=== PATIENT | male | born 1985 | race Caucasian/White ===

== ENCOUNTER 2017-04-17 09:55 | Inpatient (IN) ==
[2017-04-17 10:28] VITALS: BMI 28.2
--- NOTE | 2017-04-17 11:08 | Anesthesia Preoperative Report ---
Anesthesia Preoperative Record - Date and Time Date: 04/17/17 Preoperative Diagnosis: Robotic Sixto Fundoplicat, K44.9,R11.11,R05,K21.9 uncontrolled gerd Proposed Procedure: robotic assisted laparoscopic sixto fundoplication. NPO Since Date: 04/17/17 NPO Since Time: 00:00 Allergies/Adverse Reactions: Allergies Allergy/AdvReac Type Severity Reaction Status Date / Time No Known Allergies Allergy Unverified 04/17/17 10:43 - Vital Signs Vital Signs: Temperature 99.4 F 04/17/17 10:26 Pulse Rate 106 H 04/17/17 10:39 Respiratory Rate 17 04/17/17 10:26 Blood Pressure 151/78 H 04/17/17 10:26 Pulse Oximetry 96 04/17/17 10:26 Oxygen Delivery Method Room Air Height and Weight: Height 6 ft 1 in Weight 97.1 kg Body Mass Index 28.2 - Medications Inpatient Medications: Current Medications Lactated Ringer's (Lactated Ringers) 1,000 mls @ 30 mls/hr IV .Q24H SINDHU Lidocaine HCl (Xylocaine-Mpf 1% Vial) 1 mg ID O ONE Stop: 04/17/17 15:47 Home Medications: Home Medications Medication Instructions Recorded Confirmed Type Dextroamphetamine/Amphetamine 1 tab PO DAILY #0 tab 12/12/16 04/17/17 History [Adderall 10 mg Tablet] Mirtazapine 0.5 tab PO HS #0 tab 12/12/16 04/17/17 History Atorvastatin [Lipitor] 1 tab PO HS 04/16/17 04/17/17 History - Medical History Respiratory: DENIES: Asthma, Bronchitis, Chronic Obstructive Pulmonary Disease (COPD), Dyspnea, Orthopnea, Pulmonary Embolism, Pneumonia, Upper Respiratory Infection, Pulmonary Edema, Sleep Apnea, Tuberculosis, Other Cardiovascular: DENIES: Abnormal EKG, Angina, Arrhythmia, Congestive Heart Failure, Coronary Artery Disease, Heart Murmur, Hypertension, Hypotension, High Cholesterol, Myocardial Infarction, Rheumatic Fever, Valvular Heart Disease, Other Gastrointestional: Reports: Gastroesophageal Reflux Disease (uncontrolled) Neuro/Musculoskeletal: Denies: HX.MS.OSAR, Back Problems, Cerebrovascular Accident, Depression, Headaches, Loss of Consciousness, Muscle Weakness, Neuromuscular Disorder, Paralysis, Paresthesia, Syncope, Seizures, Other Renal/Endocrine: DENIES: Diabetes Mellitus Type 1, Diabetes Mellitus Type 2, Renal Failure, Dialysis, Thyroid Disease, Weight Loss, Weight Gain, Other Other History: DENIES: Anesthesia Reactions, Now, Blood Transfusions, Chemotherapy , Cancer, Hemophilia, Malignant Hyperthermia, Sickle Cell Disease, Other - Surgical History GI Surgery/Treatments: Reports: EGD - Social History Smoking Status: Former smoker Substance Use Type: does not use - Pertinent Findings Laboratory: CBC and BMP 04/17/17 10:31 04/17/17 10:31 BMP 04/17/17 10:31 Sodium 142 Potassium 4.4 Chloride 107 Carbon Dioxide 25 BUN 12.0 Creatinine 1.0 Glucose 100 Calcium 9.6 EKG Rhythm: Normal Sinus Rhythm - Physical Exam Respiratory Exam: Present: lungs clear, bilateral breath sounds equal Cardiovascular Exam: Present: regular rate and rhythm, no murmur - Airway Assessment Mallampati Score: I TMD: 3 Fingerbreadths Neck Extension: good Overall Assessment: no airway concerns - ASA ASA Score: 2 - Plan Anesthesia: General Inhalation Gases - Discussion Discussion: Discussed risks/options/alternatives of anesthesia and questions answered. Patient consents. Nursing pain assessment noted. Present for Discussion: other (none) Attestation Statement: Prior to the delivery of any anesthetic medication, I examined the patient, developed the plan, obtained the patient's consent and discussed the risk and benefits of the procedure with the patient/guardian. - Additional Information Seen by Anesthesia: Yes
[2017-04-17] MEDS: LR 1,000 ML IV SCH ×3 (11:17→17:38)
[2017-04-17] MEDS ORDERED: FentaNYL 100 MCG/2 ML INJECTION ONE (11:20)
[2017-04-17] MEDS ORDERED: KETAMINE 500 MG/10 ML INJECTION ONE (11:20)
[2017-04-17] MEDS ORDERED: NS 1,000 ML IV SCH (11:30)
[2017-04-17] MEDS ORDERED: LIDOCAINE 2% (100mg/5mL) PF 5ml vl ONE (12:17)
[2017-04-17] MEDS ORDERED: SUCCINYLCHOLINE 20mg/mL 10mL INJECTION ONE (12:17)
[2017-04-17] MEDS ORDERED: GLYCOPYRROLATE 0.4 MG/2 ML INJECTION ONE (12:17)
[2017-04-17] MEDS ORDERED: ONDANSETRON 4 MG/2 ML INJECTION ONE ×2 (12:17→13:29)
[2017-04-17] MEDS ORDERED: PROPOFOL 20 ML ONE (12:17)
[2017-04-17] MEDS ORDERED: DiphenhydrAMINE 50 MG/ML INJECTION ONE (12:17)
[2017-04-17] MEDS ORDERED: NEOSTIGMINE 10 MG/10 ML INJECTION ONE (12:17)
[2017-04-17] MEDS ORDERED: ROCURONIUM 50 MG/5 ML INJECTION IVP ONE (12:17)
[2017-04-17] MEDS ORDERED: BUPIVACAINE 0.25%/EPI 1:200,000 30ml SDV ID ONE (12:49)
[2017-04-17] MEDS ORDERED: HYDROMORPHONE 2 MG/ML INJECTION ONE (13:31)
[2017-04-17] MEDS ORDERED: METOPROLOL 5mg/5ml INJECTION IVP ONE (14:54)
[2017-04-17] MEDS ORDERED: SUGAMMADEX 200mg/2ml INJECTION IVP ONE (15:37)
--- NOTE | 2017-04-17 15:45 | General Surgery Procedure Note ---
Date of Procedure: 04/17/17 Surgeon: Tuan Chief Orthoptist: Dmitry Vides APRN Postoperative Diagnosis: Hiatal hernia with acute erosive esophagitis Procedure: Robotic assisted laparoscoic Estuardo Fundoplication Estimated Blood Loss: See Anesthesia Record. Pathology: none sent
[2017-04-17] MEDS ORDERED: LIDOCAINE 1% (10mg/ml) 2mL INJ PF SDV ID ONE (15:46)
[2017-04-17] MEDS ORDERED: KETOROLAC 30 MG/ML INJECTION IVP PRN (16:09)
[2017-04-17] MEDS ORDERED: MORPHINE SULFATE 10 MG/ML VIAL IVP PRN (16:09)
[2017-04-17] MEDS ORDERED: DEXAMETHASONE 4 MG/ML INJECTION IVP ONE (16:59)
[2017-04-17] MEDS ORDERED: SCOPOLAMINE 1.5 MG PATCH TD SCH (17:00)
--- NOTE | 2017-04-17 17:32 | Anesthesia Postoperative Note ---
- Date and Time Date: 04/17/17 Time: 17:30 - Status Patient Participated in Evaluation: Patient Participated in Person Vital Signs: Temperature 98 F 04/17/17 15:57 Pulse Rate 110 H 04/17/17 16:42 Respiratory Rate 14 04/17/17 16:42 Blood Pressure 152/71 H 04/17/17 16:42 Pulse Oximetry 93 04/17/17 16:42 Oxygen Delivery Method Nasal Cannula Oxygen Flow Rate 2 Respiratory Function: Airway Patent, Regular Respirations Cardiovascular Function: Regular Pulse Mental Status: Alert and Oriented Pain Intensity: 4 Hydration: IV Infusing Complications During Recover: None Apparent - Follow-Up Instructions Instructions: Per Surgeon
[2017-04-17] MEDS ORDERED: ONDANSETRON 4 MG/2 ML INJECTION IVP PRN (17:40)
[2017-04-17] MEDS ORDERED: HYDROCODONE/APAP 5mg/325mg TABLET PO PRN (17:40)
[2017-04-17] MEDS ORDERED: METOCLOPRAMIDE 10mg/2ml INJECTION IVP PRN (17:40)
[2017-04-17] MEDS: D5-1/2NS with KCL 20mEq 1,000 ML IV SCH (17:53)
[2017-04-17] MEDS: MORPHINE SULFATE 4 MG SYRINGE IVP PRN ×2 (18:05→22:34)
[2017-04-17] MEDS: FAMOTIDINE PB 20 MG/50 ML BAG IV SCH (18:15)
[2017-04-17] MEDS: KETOROLAC 30 MG/ML INJECTION IVP PRN (19:28)
--- NOTE | 2017-04-17 20:55 | Operative Note ---
DATE OF SERVICE 04/17/2017 SURGEON Mehran Dickerson MD PROPOSAL EDITOR Dmitry Vides APRN PREOPERATIVE DIAGNOSES Personal history for gastroesophageal reflux disease refractory to medical management, hiatal hernia. POSTOPERATIVE DIAGNOSES Personal history for gastroesophageal reflux disease refractory to medical management, hiatal hernia. PROCEDURE Robotic-assisted laparoscopic repair of hiatal hernia, Estuardo fundoplication. ANESTHESIA General endotracheal. EBL/FLUIDS Please see chart. BRIEF HISTORY/INDICATIONS Mr. Batista is a 32-year-old gentleman who several months ago had presented to my office. The patient did undergo an EGD by his primary care physician as a result of his ongoing gastroesophageal reflux disease despite medical management. Endoscopically and pathologically the patient was found to have evidence for acute and chronic esophagitis. The patient's medical management was optimized consisting of PPI and prokinetic agent/metoclopramide. Despite this, the patient continued to have ongoing symptomatology. He did have frequent episodes in the evening where he essentially experienced emesis on an almost every day basis. As a result of the above indications I recommended to the patient that he undergo surgical intervention in regards to his refractory gastroesophageal reflux disease. For completeness please refer to notes included in the patient's chart. The patient did undergo manometry preoperatively that did reveal a decreased lower esophageal sphincter tone. He did have normal contractions although his swallows failed to progress 80% of the time. The patient subsequently underwent additional evaluation including an esophagram/upper GI. There was no evidence for esophageal stasis. No evidence for esophageal dilatation. One could see good contractility of the esophagus under fluoroscopic visualization. The patient also underwent a nuclear gastric emptying study that was within normal limits. As a result of the above radiographic evaluation it was felt the patient would benefit from surgical intervention/Estuardo fundoplication. NARRATIVE OF PROCEDURE After informed consent was obtained the patient was brought to the operative suite and placed on the table in supine fashion. The abdomen was prepped and draped in sterile fashion. Formal timeout was then completed. 0.25% Marcaine with epinephrine was injected about 3-4 cm above the umbilicus. A 2-cm incision was made overlying the area of analgesia. Dissection was carried down into the deep subcuticular tissues and underlying fascia. Fascia was then grasped with two Giovana clamps and anteriorly. A 1-cm incision was made between the two Giovana clamps. Hemostat was then introduced into the fascial incision and gently spread. A U-stitch then placed with 0-Vicryl. A 12-mm camera port was then placed through this fascial opening in the peritoneal cavity. Pneumoperitoneum was established to a patient pressure of 15 mmHg utilizing carbon dioxide. Next, an additional 10-mm port was then placed along the right lateral abdominal wall. A laparoscopic fan retractor was then placed beneath the left lobe of the liver. The left lobe of the liver was larger than normal which did make visualization of the hiatus slightly more difficult. Once the fan retractor was placed at the appropriate location beneath the left lobe of the and retracted anteriorly and slightly in a cephalad fashion, one could then see the hiatus. The fan retractor was secured at this location. An additional 8-mm assist port was then placed within the right midabdomen slightly below the level of the umbilicus. An additional 8-mm da Cody port was then placed under visualization within the right upper quadrant of the abdomen just to the medial aspect of the midclavicular line. Two additional 8- mm da Cody ports were then also placed within the left upper quadrant under visualization. The patient was placed in reverse Trendelenburg position. The robot was then docked overlying the patient's head. Fenestrated bipolar grasper was placed in robotic arm #2. Vessel Sealer was placed in robotic arm # 1. A Graptor retractor was then placed in robotic arm #3. First, my clinical physician assistant grasped the midportion of the stomach and retracted it in a caudad fashion. I was surprised to see that the patient did have a fair amount of intraperitoneal fat which did limit visualization to some extent. Liver edge was smooth without nodularities. Omentum and stomach which was visualized was within normal limits. First, attention was focused to the gastrohepatic ligament. Gastrohepatic ligament was taken down under direct visualization with the use of the Vessel Sealer up to the edge of the right crura. The edge of the right crura was then incised. This was accomplished with the Vessel Sealer as well as at times with electrocautery. At no point in time was electrocautery performed adjacent to the stomach or esophagus. The da Cody suction tip catheter was then placed within robotic arm #1 and the right crura and esophagus were bluntly dissected away from one another. The medial border of the right crura was well delineated in its entirety. Next, attention was focused to the greater curvature of the stomach. The Graptor retractor was placed upon the omentum and retracted laterally. [employer] then grasped the midportion of the corpus of the stomach and retracted it medially. Short gastrics were then begun to be divided with the Vessel Sealer adjacent to the midportion of the corpus of the stomach. The short gastrics were then divided with the Vessel Sealer under direct visualization up to the left crura. The fundal portion of the stomach unfortunately was somewhat adherent to the posterior aspect of the left crura which did make visualization and dissection somewhat more technically difficult as a result of the visualization. Eventually, with careful meticulous dissection, however, the fundal portion of the stomach was able be completely dissected free posteriorly. The medial aspect of the left crura was then dissected out completely down to the posterior apex of the crura. Anterior apex of the crura had also been dissected out. At this point in time the esophagus had been dissected out circumferentially. There was a small portion of the stomach and some omentum that had been incarcerated through the hiatal hernia. At this juncture in time the stomach and omentum had been completely returned back into the peritoneal cavity. I elected to go ahead and approximate the crura posteriorly. Utilizing 0-Ethibond sutures, two single interrupted sutures of 0-Ethibond were placed upon the left crura and right crura resulting in imbrication of the crura edges. Next, I placed a single interrupted suture of 0-Ethibond upon the serosal aspect of the fundus of the stomach. Perhaps 3-4 cm of the posterior aspect of the esophagus and upper stomach had been dissected out posteriorly. This suture was left long and the suture was then placed down by the posterior apex of the crura. Next, visualization was then performed along the gastrohepatic ligament posteriorly to the crura. One could then see the previously placed Ethibond suture that had been placed in a single interrupted fashion upon the serosal surface of the fundus. Suture was then grasped and brought forth posteriorly into the right of the esophagus resulting in the fundal portion of the stomach coming forth posteriorly to the esophagus and sitting to the right of the esophagus. Previously placed Ethibond suture was then transected and removed. At this point in time I had Anesthesia advance the bougie that had been within the midportion of the esophagus into the gastric lumen of the stomach. NG tube was also in place. Posterior aspect of the crura was inspected and one could still see slight laxity of the crura of about 5-8 mm. There was a nice imbrication of the crura surrounding the esophagus with a 40-Kiswahili bougie in place in in conjunction with the NG. I elected not to proceed with further crural closure. Next, attention was directed towards performing the fundoplication. Three single interrupted sutures of 2-0 silk were placed in the following fashion: First, a seromuscular purchase of the fundus was obtained to the left of the esophagus followed by a small purchase of the esophagus initially at the 9 o'clock position followed by a seromuscular purchase of the fundal portion of the stomach that had now been brought forth posteriorly and to the right of the esophagus. This resulted in a completed 360-degree Estuardo fundoplication. The length of the fundoplication was perhaps about 2.5 to 3 cm in length and was present overlying the GE junction. It should be noted that the esophageal fat pad was also dissected off the esophagus and brought forth caudally during the process of creating the Estuardo fundoplication. The Estuardo fundoplication was "floppy" and one could place the Graptor retractor beneath the fundoplication between the fundal portion of the stomach and the esophagus without difficulty. There was no evidence of vascular compromise of the fundoplication. Fundoplication, as stated above, did not appear overly "taut" in nature. Each suture that was utilized for the crura closure and the creation of the Estuardo fundoplication was then removed. Instrument, sponge and needle counts were performed and found to be correct. Attention was directed towards closure. The robot was undocked. The fan retractor was then removed under direct visualization from beneath the left lobe of the liver. All ports were then removed under direct visualization. Pneumoperitoneum was released. Camera port was then removed. Previously placed U-stitch at the supraumbilical port site was then secured imbricating the fascia. Fascia at the 10-mm port along the right lower abdominal wall was closed in a [id number] fashion with 0- Vicryl. All skin incisions were closed in a subcuticular fashion with 4-0 Monocryl. Dermabond was placed overlying the incisions. The patient is in the process of awakening from his anesthetic and will be sent back to the recovery room once deemed in stable condition. Additionally, it should be noted that Dmitry Vides APRN, was present throughout the entire case and played a pivotal role in providing assistance and exposure during the course of the procedure. CHALO
[2017-04-18] MEDS: D5-1/2NS with KCL 20mEq 1,000 ML IV SCH ×2 (02:30→12:49)
[2017-04-18] MEDS: MORPHINE SULFATE 4 MG SYRINGE IVP PRN (02:30)
[2017-04-18] MEDS: FAMOTIDINE PB 20 MG/50 ML BAG IV SCH (05:54)
[2017-04-18 06:03] VITALS: RESP 16
--- NOTE | 2017-04-18 07:47 | General Surgery Progress Note ---
Subjective Narrative: States he slept off and on during the night, the SCD's were "hot" and once these were off he slept better. He is ambulating, repositioning self in bed. The right lateral most trocar site is the most tender with activity. States there is no abd pain at rest. Throat is a little sore. When he swallows water he can "feel it go down and hang up just a little" as he points to distal esophagus area. Left posterior shoulder is a little sore with movement. Denies chest pain, SOA. - Vital Signs Last Vital Signs Temp 98.7 F 04/18/17 05:45 Pulse 90 04/18/17 05:45 Resp 16 04/18/17 05:45 BP 140/75 H 04/18/17 05:45 Pulse Ox 96 04/18/17 05:45 - Laboratory Result Diagrams: 04/18/17 04:13 04/18/17 04:13 - Radiology Esophagram pending - Normal Exam General: no acute distress Cardiovascular: regular rhythm, regular rate Respiratory: clear all disla Abdominal: appropriately tender (trocar sites), non-tender (with lateral palpation and "rocking") Wound/Stoma/Drain Assessment - Wound Management Abdomen Wound Type: Surgical Incision (CDI, Dermabond glue in tact, early ecchymosis at right lateral most and umbilical trocar sites.) Assessment and Plan (1) Hiatal hernia with GERD and esophagitis Current Visit: Yes Status: Chronic Plan: 04-18-2017 POD #1 Estuardo Fundoplication Tolerating Sips and Chips well, will advance diet pending esophagram results. Encourage ambulation. DC telemetry. Hospital Course Summary Disclaimer: The visit summary below is not to be considered part of the above Progress Note. Hospital Course: 04/17/2017 Admitted for elective Robotic assisted Michael Fundoplication, see operative note for details. Transferred to surgical floor post op. 04/18/17 07:52 POD #1 Michael Fundoplication Tolerating Sips and Chips well, will advance diet pending esophagram results. Encourage ambulation. DC telemetry. Sepsis Assessment - Evaluation Sepsis screening result: No Definite Risk
[2017-04-18] MEDS ORDERED: DIATRIZOATE MEGLUMINE/SOD. (66%/10%) 120ml SOLN ONE (08:08)
[2017-04-18] MEDS: KETOROLAC 30 MG/ML INJECTION IVP PRN (08:59)
--- NOTE | 2017-04-18 09:29 | Fluoroscopy Report ---
Indication:post Estuardo fundoplication Procedure:FL esoph, ugi contr x1 ESOPHAGRAM/UPPER GI WITHOUT AIR: Technique: The patient swallowed dilute Gastrografin without difficulty. Fluoroscopic imaging was obtained in the upright LPO, supine AP, LPO, RPO, and right lateral positions. Findings: Esophagus: The esophagus is negative. Esophageal motility appears normal. No hiatal hernia or gastroesophageal reflux is visualized. No extravasation of contrast is visualized. Stomach: The stomach is negative. Contrast empties into the stomach without difficulty. No extravasation of contrast from the stomach is visualized. Duodenum: The duodenum is negative. The mucosal fold patterns appear normal. There is no obvious ulcer. There is no filling defect to suggest a mass. The duodenal sweep crosses midline in a normal fashion. There is no malrotation or obstruction of the visualized portion of the small bowel. Incidentally noted on the upright imaging is free air in abdomen. This is most likely from the patient's recent surgery. Impression: 1. Normal motility of the esophagus without evidence of extravasation of contrast. 2. Abdominal free air, most likely from the patient's recent Estuardo fundoplication. Fluoroscopy Dose: 124.48 (Cumulative air kerma) Sushil Narvaez RPA/RRA performed this under my direct supervision. .
--- NOTE | 2017-04-18 09:59 | Progress Note ---
DATE 04/18/2017 FINDINGS Kevin was without complaints today. States he has some minimal incisional tenderness but overall feels significantly better than last evening. The patient did have some right shoulder blade pain that has now resolved this morning. VITALS: Temperature 98.7, pulse 90, respirations 16, blood pressure 140/75, SaO2 96% on 2 liters per nasal cannula. CHEST: Clear to auscultation bilaterally. HEART: Regular rate and rhythm. Normal S1 and S2 without gallops, murmurs or clicks. ABDOMEN: Palpation of the abdomen reveals some minimal incisional tenderness. No evidence for guarding or rebound. LABORATORY/RADIOGRAPH EVALUATION The patient had a CBC today as well as a BMP that was essentially within normal limits. He did undergo a Gastrografin swallow this morning. Radiology states that the contrast did flow through his esophagus without difficulty and into the stomach. There was no evidence for reflux. No evidence for extravasation. ASSESSMENT 32-year-old male status post laparoscopic Estuardo fundoplication. Patient doing quite well. PLAN Will encourage ambulation today. Wean O2. Will place on full liquids. If patient is tolerating diet and overall doing well from a clinical standpoint, will discharge later today. I am pleased with the patient's appearance this morning. CHALO
[2017-04-18 11:36] VITALS: BP 136/93; PULSE 87; TEMP 98.4; O2SAT 95
--- NOTE | 2017-04-18 13:51 | Discharge Instructions ---
Discharge Plan - Med Rec/Dispo Referrals/Follow Up: Mehran Dickerson MD [Physician] - 04/23/17 9:15 am [facility] Instructions: Adult Laparoscopic Estuardo Fundoplication (DC) Prescriptions: New Hydrocodone/APAP 5/325 [[place] 5/325] 1 - 2 tab PO Q5H PRN #20 tablet PRN Reason: Pain Ibuprofen [Motrin Ib] 2 - 3 tab PO Q4H PRN #100 tab PRN Reason: Pain Continue Atorvastatin [Lipitor] 1 tab PO HS Dextroamphetamine/Amphetamine [Adderall 10 mg Tablet] 1 tab PO DAILY #0 tab Mirtazapine 0.5 tab PO HS #0 tab Pantoprazole Sodium 40 mg PO ACBID 30 Days - Disposition 01 Discharged Home, Self-Care
--- NOTE | 2017-04-18 14:00 | Discharge Summary ---
Discharge Information Date of admission: 04/17/17 09:55 Attending Physician: Mehran Dickerson MD Primary care physician: Rajesh Torres MD Consults: 04/17/17 09:42 Consult to Anesthesiology [CONS] Routine Consulting Provider: NEIL Limon Reason For Exam: SURGERY - Discharge Diagnosis (1) Hiatal hernia with GERD and esophagitis Status: Chronic - Procedures Procedures: 04/17/2017 Robotic assisted Estuardo Fundoplication - Laboratory Labs: 04/18/17 04:13 04/18/17 04:13 - History of Present Illness HPI: 32 year old male with history of hiatal hernia with GERD and erosive esophagitis failed medical management. Hospital Course This is a general summary of the patient's hospital course. For more details refer to the complete medical record. Hospital course: 04/17/2017 Admitted for elective Robotic assisted Michael Fundoplication, see operative note for details. Transferred to surgical floor post op. 04/18/17 07:52 POD #1 Michael Fundoplication Tolerating Sips and Chips well, will advance diet pending esophagram results. Encourage ambulation. ADDENDUM: 13:50 Esophagram negative for extravasation or other concerns. Diet advanced to full liquids and tolerated noon meal without difficulty. He is weaned off oxygen and eager to go home. Post op activity and diet discussed, questions answered, and appointment made for follow up with Dr. Dickerson for April 23. DVT Prophylaxis: SCD's GI Prophylaxis: Pepcid Discharge Plan - Med Rec/Dispo Referrals/Follow Up: Mehran Dickerson MD [Physician] - 04/23/17 9:15 am [facility] Instructions: Adult Laparoscopic Estuardo Fundoplication (DC) Prescriptions: New Hydrocodone/APAP 5/325 [[place] 5/325] 1 - 2 tab PO Q5H PRN #20 tablet PRN Reason: Pain Ibuprofen [Motrin Ib] 2 - 3 tab PO Q4H PRN #100 tab PRN Reason: Pain Continue Atorvastatin [Lipitor] 1 tab PO HS Dextroamphetamine/Amphetamine [Adderall 10 mg Tablet] 1 tab PO DAILY #0 tab Mirtazapine 0.5 tab PO HS #0 tab Pantoprazole Sodium 40 mg PO ACBID 30 Days - Disposition 01 Discharged Home, Self-Care
== END 2017-04-18 14:10 | disposition home or self-care (01) | DRG 328 ==
LOC: SRG 09:55
PROVIDERS: ADMIT Surgery; ATTEND Surgery